=== PATIENT | female | born 1940 | race Native Hawaiian/Other Pacific Islander ===

== ENCOUNTER → 2017-08-28 | Outpatient (CLI) | payer MEDICARE ==
--- NOTE | 2017-08-28 13:09 | BD ---
EXAMINATION TYPE: MG DEXA axial skeleton. DATE OF EXAM: 08/28/2017 COMPARISON: NONE CLINICAL HISTORY: Height: 58 IN Weight: 154 LBS FRAX RISK QUESTIONS: Alcohol (3 or more units per day): NO Family History (Parent hip fracture): NO Glucocorticoids (More than 3mos): NO (Ex: prednisone, prednisolone, methylprednisolone, dexamethasone, and hydrocortisone). History of Fracture in Adulthood: NO Secondary Osteoporosis: 1. Type 1 Diabetes: NO 2. Hyperthyroidism: NO 3. Menopause before 45: NO 4. Malnutrition: NO 5. Chronic liver disease: NO Rheumatoid Arthritis: NO Current Tobacco Use: NO RISK FACTORS HISTORY OF: Active: MODERATE Postmenopausal woman: AGE 57 Take estrogen and/or progesterone medications: NOT NOW How long: CONTROL AGE 25 -35 MEDICATIONS: Additional Medications: VIT D, VITAMINS Additional History: PT HAD LYMPHOMA WITH CHEMO AND RADIATION PT STATES SHE HAD RADIATION TO LEFT HIP IN 2013. EXAM MEASUREMENTS: Bone mineral densitometry was performed using the [employer] System. Bone mineral density as measured about the Lumbar spine is: ----- L1-L4(G/cm2): 1.112 T Score Values are as follows: ----- L2: -1.1 ----- L3: 0.3 ----- L4: -0.1 ----- L1-L4: -0.6 Bone mineral density BASELINE Bone mineral density about the R hip (g/cm2): 0.829 Bone mineral density about the L hip (g/cm2): 0.829 T Score values are as follows: -----R Neck: -1.5 -----L Neck: -1.5 -----R Total: 0.1 -----L Total: -1.7 Bone mineral density BASELINE IMPRESSION: Osteopenia (T Score between -2.5 and -1 as noted by T score values There is slightly increased risk of fracture and the patient may be considered for treatment. Re-Screen 2-5 years. NOTE: T-SCORE=SD OF THE YOUNG ADULT MEAN.
== END | disposition home or self-care (01) ==
LOC: RADBDWWP 10:53
PROVIDERS: ATTEND Family Medicine
DX: M85.80 Other specified disorders of bone density and structure, unspecified site (principal)
CPT/HCPCS: 77080

== ENCOUNTER 2018-01-29 06:00 | Day surgery (SDC) | payer MEDICARE ==
[~2018-01-29 06:00] MED LIST: DEXAMETHASONE SOD PHOSPHATE 10 MG/ML 1 ML VIAL IV ONE; LACTATED RINGERS 1,000 ML IV SCH; MIDAZOLAM 2 MG/2 ML VIAL IV PRN; ONDANSETRON 4 MG/2 ML VIAL IVP ONE; ceFAZolin IN SWFI 2 GM/20 ML SYRINGE IVP ONE; fentaNYL (PF) 50 MCG/ML 2 ML AMP IV PRN
--- NOTE | 2018-01-29 06:22 | P.GSHP ---
History of Present Illness H&P Date: 01/29/18 CHIEF COMPLAINT: Lymphoma HISTORY OF PRESENT ILLNESS: The patient is a 77-year-old female with past history of lymphoma. She had a Mediport placement. She presents for Port-A-Cath removal. PAST MEDICAL HISTORY: See list. PAST SURGICAL HISTORY: See list. CURRENT MEDICATIONS: See list. ALLERGIES: See list. SOCIAL HISTORY: No active tobacco or alcohol use. FAMILY HISTORY: Noncontributory. REVIEW OF ORGAN SYSTEMS: CONSTITUTIONAL: Denies any fever or chills. Denies recent weight loss or weight gain. HEENT: Denies any trouble with vision, hearing or nosebleeds. No difficulty swallowing. PHYSICAL EXAMINATION: Vital signs: Stable GENERAL: Well developed female and in no acute distress. Pleasant. HEENT: No sclera icterus. Extraocular movements grossly intact. Moist buccal mucosa. Head is atraumatic, normocephalic. Hears conversational speech. No nasal drainage. NECK: Supple without lymphadenopathy. No JV distention. CHEST: Non-labored respirations and equal bilateral excursions. CARDIOVASCULAR: Regular rate and rhythm. Palpable 2+ radial pulses. ABDOMEN: Nontender. MUSCULOSKELETAL: No clubbing, cyanosis or edema. NEUROLOGIC: No focal or lateralizing signs. PSYCH: Appropriate affect. Alert and oriented to person, place and time. ASSESSMENT: 1. Lymphoma 2. Need for chemotherapeutic access, resolved. PLAN: 1. Agree with Port-A-Cath removal per patient's request. Past Medical History Past Medical History: Cancer, GERD/Reflux Additional Past Medical History / Comment(s): Hx. Lymphoma- Dx 2006(NON [facility] ), INCONT OF URINE, RADIATION TO HIP FOR A TUMOR History of Any Multi-Drug Resistant Organisms: None Reported Past Surgical History: Breast Surgery, Tonsillectomy Additional Past Surgical History / Comment(s): Hx. thoracentesis Hx D&C Hx Left breast lumpectomy. Hx irregular heartbeat, VEIN STRIPPING right leg, LUMP ON SCALP REMOVED. HAD SOME LYMPH NODES REMOVED(AXILLARY) Past Anesthesia/Blood Transfusion Reactions: Blood Transfusion Reaction Additional Past Anesthesia/Blood Transfusion Reaction / Comment(s): BLOOD TRANSFUSION IN PAST STATED I GOT THE WRONG BLOOD ENDED UP W/ REACTION HIVES Smoking Status: Never smoker - Past Family History Mother Family Medical History: Cancer Medications and Allergies Home Medications Medication Instructions Recorded Confirmed Type Omeprazole [PriLOSEC] 20 mg PO DIRECTED PRN 03/21/14 01/27/18 History Ascorbic Acid [Vitamin C] 1,000 mg PO DAILY 01/27/18 01/27/18 History Azo Bladder Control 1 tab PO DAILY 01/27/18 History Cholecalciferol [Vitamin D3] 1,000 unit PO DAILY 01/27/18 01/27/18 History Cranberry Fruit Concentrate [Azo 250 mg PO DAILY 01/27/18 01/27/18 History Cranberry] Cyanocobalamin (Vitamin B-12) 1,000 mcg PO DAILY 01/27/18 01/27/18 History [Vitamin B-12] Krill/Concrete-3/Dha/Epa/Lipids 1 each PO DAILY 01/27/18 01/27/18 History [Krill Oil 350 mg Softgel] Allergies Allergy/AdvReac Type Severity Reaction Status Date / Time influenza virus vaccine, Allergy Unknown Verified 01/27/18 09:16 specific [Influenza Virus Vacc,Specific] pneumococcal 23-valent Allergy Unknown Verified 01/27/18 09:16 polysacchari [From Pneumovax 23]
[2018-01-29] MEDS ORDERED: LACTATED RINGERS 1,000 ML IV ONE (06:36)
[2018-01-29] MEDS ORDERED: LIDOCAINE 1% 20 ML VIAL (10MG/ML) FOR IV START INTRADERMA ONE (06:37)
[2018-01-29 06:51] VITALS: RESP 18; TEMP 97.5
[2018-01-29] MEDS ORDERED: MIDAZOLAM 2 MG/2 ML VIAL ONE (07:29)
[2018-01-29] MEDS ORDERED: LIDOCAINE 1% INJ 10MG/ML (20 ML MDV) ONE (07:29)
[2018-01-29] MEDS ORDERED: fentaNYL (PF) 50 MCG/ML 2 ML AMP ONE (07:29)
[2018-01-29] MEDS ORDERED: PROPOFOL 10 MG/ML 20 ML VIAL IV ONE (07:29)
[2018-01-29] MEDS ORDERED: BUPIVACAINE (PF) 0.25% 30 ML VIAL SQ ONE (07:33)
--- NOTE | 2018-01-29 07:58 | P.OP ---
Date of Procedure: 01/29/18 Description of Procedure: SURGEON: JOVAN STALLINGS MD ADMINISTRATIVE CLERK: None. PREOPERATIVE DIAGNOSIS: 1. Lymphoma 2. Chemotherapeutic venous access. POSTOPERATIVE DIAGNOSIS: 1. Lymphoma 2. Chemotherapeutic venous access. OPERATION: Removal of right internal jugular vein Port-A-Cath. ANESTHESIA: MAC with 30 mL local ESTIMATED BLOOD LOSS: 1 mL SPECIMENS REMOVED: Port-A-Cath COMPLICATIONS: None. INDICATIONS: The patient is a 77-year-old female who completed chemotherapy for lymphoma. She now has elected for removal. Benefits and risks were described. Informed consent was obtained. DESCRIPTION OF PROCEDURE: Patient was brought to the operating room, laid in supine position. After IV sedation the chest wall on the left side was prepped and draped in standard sterile fashion. Prior to incision, a timeout protocol was confirmed with surgical team regarding the patient's name including procedures to be performed. As this was a clean case, no further antibiotics were required. Additionally, early ambulation was encouraged for DVT prophylaxis. Attention was brought to the area of the port site, whereby a total of 30 mL of local was infiltrated into the skin for a field block. A #15 blade was used to incise along the previous cicatrix. Electro- Bovie cautery was used to control for hemostasis. Adhesions were lysed around the Mediport. The port was extracted without sequelae. Pressure for 2 minutes was placed along the internal jugular vein. Hemostasis was checked along the pocket of the Port-A-Cath site. The wound was closed in layers using 3-0 Vicryl for the deep subcutaneous tissues followed by 4-0 Monocryl in a running subcuticular fashion. Dermabond was applied to the skin. Once dried a 4 x 4 Optifoam was applied. At the end of the procedure needle, sponge and instrument counts were verified correct by the surgical garment assembler. The patient had tolerated the procedure well and was taken to postanesthesia care in stable condition. FINDINGS: 1. Unremarkable Port-a-cath extraction. Plan - Discharge Summary New Discharge Prescriptions: No Action Omeprazole [PriLOSEC] 20 mg PO DIRECTED PRN PRN Reason: Heartburn Cholecalciferol [Vitamin D3] 1,000 unit PO DAILY Ascorbic Acid [Vitamin C] 1,000 mg PO DAILY Cranberry Fruit Concentrate [Azo Cranberry] 250 mg PO DAILY Cyanocobalamin (Vitamin B-12) [Vitamin B-12] 1,000 mcg PO DAILY Krill/[place]-3/Dha/Epa/Lipids [Krill Oil 350 mg Softgel] 1 each PO DAILY Azo Bladder Control 1 tab PO DAILY Discharge Medication List Omeprazole [PriLOSEC] 20 mg PO DIRECTED PRN 03/21/14 [History] Ascorbic Acid [Vitamin C] 1,000 mg PO DAILY 01/27/18 [History] Azo Bladder Control 1 tab PO DAILY 01/27/18 [History] Cholecalciferol [Vitamin D3] 1,000 unit PO DAILY 01/27/18 [History] Cranberry Fruit Concentrate [Azo Cranberry] 250 mg PO DAILY 01/27/18 [History] Cyanocobalamin (Vitamin B-12) [Vitamin B-12] 1,000 mcg PO DAILY 01/27/18 [ History] Krill/[place]-3/Dha/Epa/Lipids [Krill Oil 350 mg Softgel] 1 each PO DAILY [History]
[2018-01-29 08:41] VITALS: BP 123/65; PULSE 61
== END 2018-01-29 09:05 | disposition home or self-care (01) ==
LOC: OR 06:00
PROVIDERS: ATTEND Surgery Plastic and Reconstructive Surgery
DX: C85.90 Non-Hodgkin lymphoma, unspecified, unspecified site (principal); D64.9 Anemia, unspecified; K21.9 Gastro-esophageal reflux disease without esophagitis; R32 Unspecified urinary incontinence; I49.9 Cardiac arrhythmia, unspecified; Z92.3 Personal history of irradiation; Z79.899 Other long term (current) drug therapy; Z88.7 Allergy status to serum and vaccine
CPT/HCPCS: 36590; J2250; J1100; J2405; J2001; J3010; J2704; J0690